=== PATIENT | female | born 1975 | race Caucasian/White ===

== ENCOUNTER → 2023-06-01 | Outpatient (CLI) | payer BC | LOC: MHCPAIN 13:39 | DX: M54.2 Cervicalgia (principal); R25.2 Cramp and spasm; M79.18 Myalgia, other site; Q87.40 Marfan syndrome, unspecified; H53.2 Diplopia; R26.89 Other abnormalities of gait and mobility; R29.2 Abnormal reflex | CPT/HCPCS: G0463 ==

== ENCOUNTER → 2023-08-22 | Outpatient (CLI) | payer BC | LOC: MHCPAIN 14:26 | DX: M79.18 Myalgia, other site (principal); R25.2 Cramp and spasm; Q87.40 Marfan syndrome, unspecified; R26.89 Other abnormalities of gait and mobility | CPT/HCPCS: G0463 ==

== ENCOUNTER → 2024-04-16 | Outpatient (CLI) | payer BC | LOC: MHCPAIN 14:52 | DX: M54.2 Cervicalgia (principal); M54.6 Pain in thoracic spine; Q87.40 Marfan syndrome, unspecified; R26.89 Other abnormalities of gait and mobility; M79.18 Myalgia, other site | CPT/HCPCS: G0463 ==